=== PATIENT | male | born 1990 ===

== ENCOUNTER 2020-12-30 10:26 | Emergency (ER) | payer OTHER ==
[~2020-12-30] VITALS: Ht 172.7 cm; Wt 63.5 kg
[~2020-12-30 10:26] MED LIST: KETO10TA2 PO; SEPTRA DS TABLE1 TAB PO; TRAMADOL HCL-AP1 TAB PO
== END 2020-12-30 13:51 | disposition home or self-care (01) ==
LOC: ER 10:26
DX: J35.01 Chronic tonsillitis (principal); Z11.52 Encounter for screening for COVID-19

== ENCOUNTER → 2021-12-25 | Emergency (ER) | payer OTHER ==
[~2021-12-25] VITALS: Ht 172.7 cm; Wt 59.0 kg
== END | disposition left against medical advice (07) ==
LOC: ER 08:41
DX: R06.02 Shortness of breath (principal); F11.93 Opioid use, unspecified with withdrawal; R53.81 Other malaise